=== PATIENT | male | born 1990 | race Caucasian/White ===

== ENCOUNTER 2017-05-23 20:52 | Emergency (ER) | payer BC, OTHER ==
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
[2017-05-23 21:24] VITALS: BP 152/93
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
== END 2017-05-23 21:55 | disposition home or self-care (01) ==
LOC: UCCORT 20:52
DX: S43.401A Unspecified sprain of right shoulder joint, initial encounter (principal); S46.911A Strain of unspecified muscle, fascia and tendon at shoulder and upper arm level, right arm, initial encounter; V86.92XA Unspecified occupant of snowmobile injured in nontraffic accident, initial encounter; Y93.29 Activity, other involving ice and snow; Y92.9 Unspecified place or not applicable
CPT/HCPCS: 99213; G0463